=== PATIENT | female | born 1970 | race Caucasian/White ===

== ENCOUNTER 2017-01-18 18:13 | Emergency (ER) | payer BC ==
[~2017-01-18 18:13] MED LIST: DARVOCET-N 1001 EACH PO; IRON1 TAB PO; MOTRIN800 MG PO; PRENATAL1 EACH PO; XANAX1 M1 PO; ZOFRAN4 MG PO; ZOLOFT100 MG; [UNRECOGNIZED DRUG - OTHER] VG
[2017-01-18] MEDS ORDERED: VYVANSE30 M1 PO (18:45)
[2017-01-18] MEDS ORDERED: BACTRIM DS TAB1 EAC2 PO (18:47)
[2017-01-18] MEDS ORDERED: TRIAMCINOLONE A60 M1 TP (18:48)
[2017-01-18] MEDS ORDERED: PREDNISONE20 M1 PO (19:16)
[2017-01-18] MEDS ORDERED: VIBRAMYCIN100 M1 PO (19:51)
== END 2017-01-18 20:05 ==
LOC: EDMED 18:13
DX: L29.9 Pruritus, unspecified (principal); R21 Rash and other nonspecific skin eruption; R60.0 Localized edema; F41.9 Anxiety disorder, unspecified; F90.9 Attention-deficit hyperactivity disorder, unspecified type; Z79.899 Other long term (current) drug therapy
CPT/HCPCS: J7512